=== PATIENT | male | born 1990 | race African-American/Black ===

== ENCOUNTER 2016-07-29 21:20 | Emergency (ER) | payer OTHER ==
[~2016-07-29] VITALS: Ht 175.3 cm; Wt 75.0 kg
[~2016-07-29 21:20] MED LIST: CHERATUSSIN AC120 ML PO; CIPRO 500MG TA500 MG PO; FLAGYL500 MG PO; NORCO 325 MG-51 TAB PO; PREDNISONE20 MG PO; PROAIR HFA0.09 MG/AC IH; ZOFRAN 4MG T4 MG/TAB PO
[2016-07-29 21:30] VITALS: TEMP 98.6
[2016-07-29] MEDS ORDERED: BACTRIM DS 8001 TAB PO (22:01)
[2016-07-29] MEDS ORDERED: NORCO 325 MG-51 TAB PO (22:01)
[2016-07-29 22:09] VITALS: BP 120/84; PULSE 84
== END 2016-07-29 22:09 | disposition home or self-care (01) ==
LOC: COL.ER 21:20
DX: L02.411 Cutaneous abscess of right axilla (principal)